=== PATIENT | female | born 1960 | race Caucasian/White ===

== ENCOUNTER 2017-12-12 13:54 | Inpatient (IN) ==
[2017-12-12] MEDS ORDERED: Ipratropium/Albuterol Neb 3 ML IH ONE ×2 (14:17→16:40)
--- NOTE | 2017-12-12 14:43 | Emergency Department Note ---
Disposition Clinical Impression: Acute exacerbation of chronic obstructive airways disease, Acute on chronic respiratory failure with hypoxia Disposition: Admitted As Inpatient Condition: Good Time of Disposition: 16:44 SOB HPI - General Chief Complaint: ED Shortness of Breath/Dyspnea Stated Complaint: MAYNOR-COPD Time Seen by Provider: 12/12/17 14:03 Source: patient Limitations: no limitations Nursing Notes Reviewed: Yes Vital Signs Reviewed: Yes - History of Present Illness Mrs. Cardona, 49-year-old female, presents from home with son bedside for evaluation of dyspnea. Onset progressive over the past 2 weeks. She was seen and evaluated at urgent care 2 weeks ago, diagnosed with bronchitis, given a prescription of an unknown antibiotic and steroids. She has completed both of these. Her symptoms initially improved for several days and then became steadily worse. She is a history of COPD and is on 2 L oxygen at night. Her dyspnea persists despite home metered dose and nebulizer inhalers as well as using her oxygen during the day. She has a productive cough and chest pain only when coughing. She has chills with subjective fever worsening fatigue, myalgia. ROS: Positive: As above Negative: Nausea, vomiting, diarrhea, constipation, hematemesis, hematochezia, melena, chest pains outside of cough diaphoresis, unusual back pains - Related Data Home Medications Medication Instructions Recorded Confirmed Advair 250-50 Diskus 06/18/15 06/18/15 Metoprolol 06/18/15 06/18/15 Singulair 06/18/15 06/18/15 Synthroid 06/18/15 06/18/15 Aspirin 11/25/17 11/25/17 Levothyroxine Sodium 11/25/17 Oxygen 11/25/17 Pravastatin Sodium 11/25/17 Spiriva 11/25/17 Xarelto 11/25/17 Previous Rx's Medication Instructions Recorded Albuterol Sulfate [Albuterol 2 puff IH QID 2 Days inhaler 11/03/15 Inhaler] Benzonatate [Tessalon] 200 mg PO TID PRN #30 capsule 06/11/16 GuaiFENesin/Codeine [Robitussin 5 ml PO Q6HR PRN #120 liquid 11/25/17 w/Codeine] cephALEXin [Keflex] 500 mg PO QID #40 capsule 11/25/17 methylPREDNISolone [Medrol] 4 mg PO TAPER #21 tablet 11/25/17 Allergies Allergy/AdvReac Type Severity Reaction Status Date / Time No Known Allergies Allergy Verified 11/25/17 17:11 All systems ED: reviewed and negative except as stated. Review of Systems: As Per HPI Past Medical History - Past Medical History Medical history: Reports: asthma, atrial fibrillation, COPD, hypertension, thyroid disease, other Psychiatric history: Reports: no psych history LEADER TIER history: Reports: no LEADER TIER history - Social History Smoking Status: Former smoker Smokeless Tobacco Status: No Alcohol use: Reports: none Drug use: Reports: none Physical Exam Vital Signs Reviewed General: Patient is alert, oriented, and in mild respiratory distress- preferring to lean forward while on room air. Head: atraumatic, normocephalic Eye: normal appearance, PERRL, EOMI, no scleral icterus, no conjunctival injection ENT: mucous membranes moist, normal external ear exam Neck: normal inspection, trachea midline, full ROM Chest: normal inspection, symmetric chest rise Respiratory: Poor respiratory effort. Long expiratory phase. Bilateral breath sounds globally diminished with poor air entry, bibasilar faint crackles. No wheeze or rhonchi. Cardiovastular: Regular rate and rhythm. No clicks, rubs, gallops, or murmors. Normal heart sounds. Abdomen: Bowel sounds present normoactive x-4 quadrants. Abdomen is soft, nondistended, and nontender. No guarding or rebound. No organomegaly noted. Musculoskeletal: Spontaneously moving all extremities. Skin: warm, dry, intact. Neuro: Alert and oriented x4. Sensation light touch intact. Psych: Patient's affect is appropriate for situation. - General Limitations: no limitations General appearance: alert Course Course Narrative: Clinically suspects acute exacerbation of COPD versus pneumonia. We will also look at potential cardiac etiology. Patient has no history of congestive heart failure does not clinically appear volume overloaded. She has no history of DVT or PE. Patient has poor air entry without wheeze. We will provide DuoNeb nebs and reassess hoping to open up airways and create a wheeze with improved air excursion. Serum hematology is unremarkable. Specifically, no leukocytosis. Serum chemistry is unremarkable. Chest x-ray not concerning for bronchitis or pneumonia. No pulmonary edema. After initial triple dose of DuoNeb's, patient now has slight global wheeze. She is now requiring 4 L of nasal cannula to maintain a saturation of 94% while sitting at bedside. She prefers sitting upright instead of laying supine. Given the above, will provide Solu-Medrol, additional DuoNeb times, and recommend admission. I discussed the above the patient, her , and her son. They are agreeable to admission for continued respiratory support. I discussed the above with the admitting hospitalist. He agrees to admission for continued evaluation and management. Chest X-Ray 12/12/17 14:17 IMPRESSION: No evidence for acute cardiopulmonary process. D/ / 12/12/2017 15:29:30 Montrell Barboza MD / tamara Interpreting Provider: Montrell Barboza MD Vital Signs Temperature 98.1 F 12/12/17 13:57 Pulse Rate 96 12/12/17 13:57 Respiratory Rate 18 12/12/17 13:57 Blood Pressure 141/89 12/12/17 13:57 O2 Sat by Pulse Oximetry 86 12/12/17 13:57 Temperature 98.1 F 12/12/17 13:57 Pulse Rate 99 12/12/17 16:51 Respiratory Rate 16 12/12/17 16:51 Blood Pressure 107/94 12/12/17 16:51 O2 Sat by Pulse Oximetry 94 12/12/17 16:51 Oxygen Delivery Oxygen Delivery Nasal Cannula Shortness of Breath/Dyspnea - Lab Data Result diagrams: 12/12/17 14:31 12/12/17 14:31 Lab Results 12/12/17 12/12/17 Range/Units 14:31 14:31 WBC 9.6 (4.3-11.1) K/mcL RBC 4.30 (3.82-4.97) M/mcL Hgb 13.7 (11.5-15.4) g/dL Hct 40.1 (35.3-44.9) % MCV 93.3 (83.0-100.0) fL MCH 31.9 (28.0-33.3) pg MCHC 34.2 (31.6-35.5) g/dL RDW 13.2 (11.5-14.5) % Plt Count 296 (140-400) K/mcL MPV 10.1 (9.4-12.4) fL Immature Gran % 0.2 (0-4) % Seg Neutrophils % 59.1 % Lymphocytes % 14.2 % Monocytes % 6.8 % Eosinophils % 19.1 % Basophils % 0.6 % Neutrophils # 5.7 (1.6-8.9) K/mcL Lymphocytes # 1.4 (0.6-4.6) K/mcL Monocytes # 0.7 (0.0-1.3) K/mcL Eosinophils # 1.8 H (0.0-0.6) K/mcL Basophils # 0.1 (0.0-0.2) K/mcL Sodium 141 (136-145) mEq/L Potassium 4.0 (3.5-5.1) mEq/L Chloride 107 (98-107) mEq/L Carbon Dioxide 27 (23-29) mEq/L BUN 7 (6-20) mg/dL Creatinine 0.82 (0.60-1.20) mg/dL Est GFR ( Amer) > 60 (> 60) Est GFR (Non-Af Amer) > 60 (> 60) BUN/Creatinine Ratio 9 (6-26) Glucose 103 (70-105) mg/dL Calculated Osmolality 290 (280-300) Calcium 10.3 (8.6-10.3) mg/dL - EKG Data EKG attestation: Yes I reviewed and interpreted this EKG. EKG shows normal: Reports: sinus rhythm Rate: Reports: normal Rhythm: Reports: NSR Interpretation: Reports: no acute changes, unchanged when compared to prior tracing (date) Attestation Statement - Attestation Attestation: Patient was seen with resident physician. I reviewed the history, physical, assessment and plan, and agree with the findings. I also personally evaluated this patient and had [id number] time with this patient. 57-year-old female presents emergency department with shortness of breath the last couple of days. Patient has a history of asthma and COPD. She was seen in urgent care 2 weeks ago diagnosed with bronchitis and placed on an antibiotic and steroid pack. She is not sure which antibiotic. She is last today she progressively gotten worse. Has required more oxygen and breathing treatments but it does not help. Denies fevers chills chest pain shortness of breath or swelling in the lower upper extremities. On exam vital signs are stable. ENT is unremarkable. Heart is normal. Lungs decreased movement of air. Patient position of comfort is sitting forward. There are some wheezing on end expiration. Abdomen is soft and nontender. Extremities unremarkable. Neurologically intact. Skin showed no rashes. And psychiatric exam is normal. ED course we will do a workup for COPD pneumonia or influenza. We will also treat with bronchodilators. Once treatments completely we will reevaluate patient for need for admission. Workup was largely unremarkable. However after 3 breathing treatments of patient was still having a difficult time I with her COPD exacerbation. As a result we will recommend admission. Case was discussed with the hospitalist service agreed to accept the patient for admission. I agree with resident physician assessment and plan.
[2017-12-12 14:47] LABS: Basophils # 0.1 K/mcL (0.0-0.2); Basophils % 0.6 %; Eosinophils # 1.8 K/mcL (0.0-0.6); Eosinophils % 19.1 %; Hematocrit 40.1 % (35.3-44.9); Hemoglobin 13.7 g/dL (11.5-15.4); Immature Granulocytes % 0.2 % (0-4); Lymphocytes # 1.4 K/mcL (0.6-4.6); Lymphocytes % 14.2 %; Mean Corpuscular HGB Conc 34.2 g/dL (31.6-35.5); Mean Corpuscular Hemoglobin 31.9 pg (28.0-33.3); Mean Corpuscular Volume 93.3 fL (83.0-100.0); Mean Platelet Volume 10.1 fL (9.4-12.4); Monocytes # 0.7 K/mcL (0.0-1.3); Monocytes % 6.8 %; Neutrophils # 5.7 K/mcL (1.6-8.9); Platelet Count 296 K/mcL (140-400); Red Cell Distribution Width 13.2 % (11.5-14.5); Segmented Neutrophils % 59.1 %
[2017-12-12 15:20] LABS: Blood Urea Nitrogen 7 mg/dL (6-20); Calcium 10.3 mg/dL (8.6-10.3); Carbon Dioxide 27 mEq/L (23-29); Chloride 107 mEq/L (98-107); Glucose 103 mg/dL (70-105); Osmolality,Calculated 290 (280-300); Sodium 141 mEq/L (136-145)
[2017-12-12 16:22] LABS: BUN/Creatinine Ratio 9 (6-26); eGFR For African Americans > 60 (> 60); eGFR For Non-African Americans > 60 (> 60)
[2017-12-12] MEDS ORDERED: methylPREDNISolone 125 MG/2 ML VIAL IVP ONE (16:41)
--- NOTE | 2017-12-12 17:32 | Internal Med History&Physical ---
Date of Encounter: 12/13/17 Time of Encounter: 17:24 Assessment and Plan (1) Acute exacerbation of chronic obstructive airways disease Current visit: Yes Status: Acute 57/female EX smoker. Diagnosed COPD more than 5 years back. He is to follow-up at pulmonology group here in this hospital. 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 2-3 exacerbations every year in the past 4-5 years. She claims that she is up-to-date with her vaccination. Ongoing shortness of breath/cough/difficulty in breathing for more than a month. Failed outpatient trial of antibiotics/steroids. Presently using accessory muscles of respiration and she has a polyphonic bilateral wheezes. Assessment: Acute exacerbation of COPD. Failed outpatient antibiotic treatment. Plan: Admit as inpatient. Intravenous ceftriaxone 1 g every 24 hours/intravenous azithromycin 500 mg every 24 hours. Intravenous methylprednisolone 40 mg every 8 hours Interval bronchodilators every 4 hours. Close monitoring of the respiratory status. Of note: I examined this patient in the emergency room #15. Plan of care discussed with the patient at length. All questions answered. Patient verbalizes understanding. (2) Atrial fibrillation Current visit: Yes Status: Acute Patient is known to have a chronic atrial fibrillation. EKG: Today: Rate is very well controlled with atrial fibrillation. Echocardiogram: 01/21/2017: EF 60%, mild diastolic dysfunction, pulmonary hypertension. Rate control: Metoprolol 200 mg by mouth daily. Anticoagulation:Xarelto plan We will continue home medication. We will get 3 troponins. Qualifiers: Atrial fibrillation type: chronic Qualified Code(s): I48.2 - Chronic atrial fibrillation (3) Hypothyroidism Current visit: Yes Status: Acute We will get TSH. Continue home medication. Qualifiers: Hypothyroidism type: unspecified Qualified Code(s): E03.9 - Hypothyroidism , unspecified (4) Hyperlipidemia Current visit: Yes Status: Acute We will continue pravastatin Qualifiers: Hyperlipidemia type: unspecified Qualified Code(s): E78.5 - Hyperlipidemia , unspecified (5) Hypertension Current visit: Yes Status: Acute We will continue present medication. Qualifiers: Hypertension type: essential hypertension Qualified Code(s): I10 - Essential (primary) hypertension (6) DVT prophylaxis Current visit: Yes Status: Acute Xarelto Medical decision making: This patient has a moderate to severe risk of worsening in spite of being on appropriate medication due to the underlying multiple comorbid conditions. Internal Medicine - H&P: HPI Chief complaint: Difficulty in breathing Admitted From: Emergency Dept Plans for Post Hospital Care: Home History of present illness: 57/F PCP: Aniyah Ang Dental Technician Apprentice : Dr Wise in past and presently no product owner follow up. Brief PMH: COPD on 2 L of oxygen at home, hypothyroidism, atrial fibrillation, hyperlipidemia, History of present medical illness: Patient has ongoing worsening shortness of breath off and on for more than one month. In last 2 weeks it was noted that patient's shortness of breath got worsened. Patient claims that she has productive cough with the mucopurulent expectoration. The color of her sputum is yellowish green and sometimes brown. Patient was evaluated by urgent care and she was given the tapering steroid dose pack along with a course of oral antibiotics. According to the patient this medications from urgent care did not help her at all and her shortness of breath is progressively getting worse. Patient was really concerned about this worsening shortness of breath along with a productive cough and that was the reason she decided to come to the emergency room for further evaluation. Patient denies nausea or vomiting diarrhea constipation hematemesis hematochezia melena chest pain or any other back pain. Patient is ex-smoker Workup in the emergency room: Patient was evaluated in the emergency room. Basic labs were drawn. Intravenous steroids were given along with inhaled bronchodilators. Patient still has active bilateral wheezing along with that patient is using accessory muscles of respiration. Reason for admission: COPD exacerbation with failed outpatient treatment which needs intravenous antibiotics/steroids along with inhaled bronchodilators. Family history: Noncontributory Past Med Surg Social Fam HX - Past Medical History Medical history: asthma, atrial fibrillation, COPD, hypertension, thyroid disease, other Psychiatric history: no psych history - Social History Smoking Status: Former smoker Smokeless Tobacco Status: No Alcohol use: none Drug use: none Internal Medicine - H&P: Meds Aspirin Enteric Coated [Aspirin EC] 81 mg PO DAILY 12/12/17 [History] Fluticasone/Salmeterol [Advair 250-50 Diskus] 2 puff IH BID 12/12/17 [History] Ipratropium/Albuterol Neb [Duoneb] 3 ml IH QID PRN 12/12/17 [History] Levothyroxine Sodium 50 mcg PO DAILY 12/12/17 [History] Metoprolol Succinate 200 mg PO DAILY 12/12/17 [History] Oxygen 2 l .ROUTE AD 12/12/17 [History] Pravastatin Sodium [Pravachol] 80 mg PO DAILY 12/12/17 [History] Rivaroxaban [Xarelto] 20 mg PO DAILY 12/12/17 [History] 3 Allergy/AdvReac Type Severity Reaction Status Date / Time No Known Allergies Allergy Verified 11/25/17 17:11 All Systems PM: A 10-system review of systems was performed and is negative for pertinent findings except as documented above in the HPI. - Constitutional Constitutional: no chills, no fever(s), no night sweats - EENT Eyes: no change in vision, no discharge, no pain, no photophobia Ears: no ear discharge, no ear pain, no tinnitus Nose, mouth and throat: no dysphagia, no nasal discharge, no neck pain, no sore throat - Cardiovascular Cardiovascular ROS IM: diaphoresis, dyspnea, no chest pain, no lightheadedness, no palpitations, no syncope - Respiratory Respiratory: cough, dyspnea, wheezing, excessive phlegm production, change in phlegm color - Gastrointestinal Gastrointestinal: no abdominal pain, no diarrhea, no hematemesis, no hematochezia, no melena, no nausea, no vomiting - Genitourinary Genitourinary: no change in urinary stream, no dysuria, no flank pain, no hematuria - Musculoskeletal Musculoskeletal ROS IM: no numbness, no tingling - Integumentary Integumentary IM: no rash, no unusual bruising - Neurological Neurological ROS: no confusion, no convulsions, no focal weakness, no numbness, no tingling, no tremor(s) - Hematologic/Lymphatic Hematologic/Lymphatic: no easy bruising - Constitutional Vitals: Temp Pulse Resp BP Pulse Ox 98.1 F 99 16 107/94 92 12/12/17 13:57 12/12/17 16:51 12/12/17 17:02 12/12/17 17:02 12/12/17 17:02 General appearance: Present: A&O X 3, pleasant, no acute distress, answers questions appropriately - Head Head exam: Present: atraumatic, normocephalic - Eye Eye exam: Present: PERRL, conjuntiva pink, sclera anicteric Pupils: Present: PERRL - Neck Neck exam general surgery: Present: supple, trachea midline. Absent: lymphadenopathy - Respiratory Respiratory exam: Present: CTAB. Absent: accessory muscle use, rales, rhonchi, wheezes - Cardiovascular Cardiovascular exam: Present: RRR, +S1, +S2. Absent: diastolic murmur, gallop, rubs, systolic murmur - GI/Abdominal GI/Abdominal exam: Present: normal bowel sounds, soft, no peritoneal signs. Absent: distended, tenderness - Extremities Exam Extremities exam: Present: warm, radial pulses palpable and symmetrical. Absent : calf tenderness, cyanotic, pedal edema - Neurological Exam Neurological exam: Present: CN II-XII intact, oriented X3, no focal deficits. Absent: pronater drift, facial droop, speech deficit - Skin Skin exam: Present: dry, intact Internal Med - H&P Results - Labs CBC & Chem 7: 12/13/17 03:43 12/13/17 03:43 Labs: Results discussed with the emergency room physician.
[2017-12-12] MEDS ORDERED: Naloxone 0.4 MG/ML INJ IVP PRN (17:42)
[2017-12-12] MEDS: Azithromycin 500 MG in D5% in Water 250 ML IVPB SCH (19:26)
[2017-12-12] MEDS: Ipratropium/Albuterol Neb 3 ML IH SCH ×2 (19:50→23:16)
[2017-12-13] MEDS: MethylPREDNISolone 40 MG/ML VIAL IVP SCH ×4 (00:07→23:34)
[2017-12-13] MEDS: Melatonin 3 MG TABLET PO SCH ×2 (01:03→21:34)
[2017-12-13 03:53] LABS: Eosinophils % 0.1 %; Hematocrit 40.9 % (35.3-44.9); Hemoglobin 13.8 g/dL (11.5-15.4); Immature Granulocytes % 0.3 % (0-4); Lymphocytes # 0.6 K/mcL (0.6-4.6); Lymphocytes % 7.6 %; Mean Corpuscular HGB Conc 33.7 g/dL (31.6-35.5); Mean Corpuscular Hemoglobin 31.4 pg (28.0-33.3); Monocytes % 0.5 %; Neutrophils # 6.8 K/mcL (1.6-8.9); Platelet Count 292 K/mcL (140-400); Red Cell Distribution Width 13.2 % (11.5-14.5); Segmented Neutrophils % 91.5 %
[2017-12-13] MEDS: Ipratropium/Albuterol Neb 3 ML IH SCH ×6 (03:59→23:43)
[2017-12-13 04:10] LABS: BUN/Creatinine Ratio 13 (6-26); Blood Urea Nitrogen 10 mg/dL (6-20); Calcium 9.7 mg/dL (8.6-10.3); Carbon Dioxide 25 mEq/L (23-29); Chloride 104 mEq/L (98-107); Chol/HDL Ratio 3.2 (0-4.9); Cholesterol 212 mg/dL (< 200); Glucose 139 mg/dL (70-105); HDL Cholesterol 67 mg/dL (40-59); LDL Cholesterol,Calculated 130 mg/dL (0-99); Magnesium 1.9 mg/dL (1.6-2.6); Osmolality,Calculated 289 (280-300); Phosphorous 3.4 mg/dL (2.7-4.5); Sodium 139 mEq/L (136-145); Triglycerides 76 mg/dL (< 150); eGFR For African Americans > 60 (> 60); eGFR For Non-African Americans > 60 (> 60)
[2017-12-13] MEDS: cefTRIAXone 1,000 MG in Water for inj. (sterile) 20 ML 10 ML IVP SCH (09:23)
[2017-12-13] MEDS: Aspirin Enteric Coated 81 MG Tablet PO SCH (09:24)
[2017-12-13] MEDS: Metoprolol XL (24 HR) Succ 50 MG TAB.ER.24H PO SCH (09:24)
[2017-12-13] MEDS: *HR* Rivaroxaban 10 MG TABLET PO SCH (09:24)
--- NOTE | 2017-12-13 16:17 | Internal Med Progress Note ---
Date of Encounter: 12/13/17 Time of Encounter: 16:15 - Assessment and plan (1) Acute exacerbation of chronic obstructive airways disease Current Visit: Yes Status: Acute Assessment and plan: 57/female Known to have a COPD. Admitted with COPD exacerbation. Presently on antibiotics (ceftriaxone/azithromycin: Intravenously) Intravenous Solu-Medrol 40 mg every 8 hours. Inhaled bronchodilators Plan: Will continue present treatment for now. (2) Atrial fibrillation Current Visit: Yes Status: Acute Assessment and plan: She is stable atrial fibrillation. We will continue home medication. Qualifiers: Atrial fibrillation type: chronic Qualified Code(s): I48.2 - Chronic atrial fibrillation (3) Hypothyroidism Current Visit: Yes Status: Acute Assessment and plan: Stable Qualifiers: Hypothyroidism type: unspecified Qualified Code(s): E03.9 - Hypothyroidism , unspecified (4) Hyperlipidemia Current Visit: Yes Status: Acute Assessment and plan: Stable Qualifiers: Hyperlipidemia type: unspecified Qualified Code(s): E78.5 - Hyperlipidemia , unspecified (5) Hypertension Current Visit: Yes Status: Acute Assessment and plan: Continue home meds Qualifiers: Hypertension type: essential hypertension Qualified Code(s): I10 - Essential (primary) hypertension (6) DVT prophylaxis Current Visit: Yes Status: Acute Assessment and plan: Xarelto - Subjective Interval history: Patient seen and examined. Chart reviewed. Patient is comfortably sitting in the bed. Patient still has occasional shortness of breath and she is still coughing. Patient denies any chest pain - Constitutional Vitals: Temp Pulse Resp BP Pulse Ox 98.0 F 103 18 116/82 97 12/13/17 11:50 12/13/17 11:50 12/13/17 11:50 12/13/17 11:50 12/13/17 11:50 General appearance: Present: A&O X 3, pleasant, no acute distress, answers questions appropriately - Head Head exam: Present: atraumatic, normocephalic - Eye Eye exam: Present: PERRL, conjuntiva pink, sclera anicteric Pupils: Present: PERRL - Neck Neck exam general surgery: Present: supple, trachea midline. Absent: lymphadenopathy - Respiratory Respiratory exam: Present: CTAB. Absent: accessory muscle use, rales, rhonchi, wheezes - Cardiovascular Cardiovascular exam: Present: RRR, +S1, +S2. Absent: diastolic murmur, gallop, rubs, systolic murmur - GI/Abdominal GI/Abdominal exam: Present: normal bowel sounds, soft, no peritoneal signs. Absent: distended, tenderness - Extremities Exam Extremities exam: Present: warm, radial pulses palpable and symmetrical. Absent : calf tenderness, cyanotic, pedal edema - Neurological Exam Neurological exam: Present: CN II-XII intact, oriented X3, no focal deficits. Absent: pronater drift, facial droop, speech deficit - Skin Skin exam: Present: dry, intact Internal Medicine: Result - Labs CBC & Chem 7: 12/13/17 03:43 12/13/17 03:43 Labs: Short CBC 12/13/17 Range/Units 03:43 WBC 7.4 (4.3-11.1) K/mcL Hgb 13.8 (11.5-15.4) g/dL Hct 40.9 (35.3-44.9) % Plt Count 292 (140-400) K/mcL Neutrophils # 6.8 (1.6-8.9) K/mcL BMP 12/13/17 03:43 Sodium 139 Potassium 4.0 Chloride 104 Carbon Dioxide 25 BUN 10 Creatinine 0.80 Glucose 139 H Calcium 9.7 Cardiac Enzymes 12/12/17 12/13/17 12/13/17 Range/Units 20:57 03:43 10:18 Troponin I < 0.03 < 0.03 < 0.03 (< 0.04) ng/mL Consult Discharge Plan - Plan Referrals: Aniyah Ang [Primary Care Provider] -
[2017-12-13] MEDS: Azithromycin 500 MG in D5% in Water 250 ML IVPB SCH (16:59)
[2017-12-13] MEDS ORDERED: Albuterol 2.5 MG/3 ML NEBULIZER IH PRN (21:45)
[2017-12-14] MEDS: Ipratropium/Albuterol Neb 3 ML IH SCH ×6 (04:23→23:31)
[2017-12-14 06:05] LABS: Basophils % 0.1 %; Hematocrit 38.7 % (35.3-44.9); Hemoglobin 13.2 g/dL (11.5-15.4); Immature Granulocytes % 0.6 % (0-4); Lymphocytes # 0.5 K/mcL (0.6-4.6); Lymphocytes % 3.6 %; Mean Corpuscular HGB Conc 34.1 g/dL (31.6-35.5); Mean Corpuscular Hemoglobin 31.6 pg (28.0-33.3); Mean Corpuscular Volume 92.6 fL (83.0-100.0); Mean Platelet Volume 10.1 fL (9.4-12.4); Monocytes # 0.3 K/mcL (0.0-1.3); Monocytes % 2.3 %; Neutrophils # 13.3 K/mcL (1.6-8.9); Platelet Count 239 K/mcL (140-400); Red Blood Count 4.18 M/mcL (3.82-4.97); Red Cell Distribution Width 13.3 % (11.5-14.5); Segmented Neutrophils % 93.4 %
[2017-12-14 06:46] LABS: BUN/Creatinine Ratio 23 (6-26); Blood Urea Nitrogen 19 mg/dL (6-20); Calcium 9.2 mg/dL (8.6-10.3); Carbon Dioxide 28 mEq/L (23-29); Chloride 106 mEq/L (98-107); Glucose 140 mg/dL (70-105); Osmolality,Calculated 295 (280-300); Potassium 4.4 mEq/L (3.5-5.1); Sodium 140 mEq/L (136-145); eGFR For African Americans > 60 (> 60); eGFR For Non-African Americans > 60 (> 60)
[2017-12-14] MEDS: Aspirin Enteric Coated 81 MG Tablet PO SCH (08:42)
[2017-12-14] MEDS: MethylPREDNISolone 40 MG/ML VIAL IVP SCH ×3 (08:43→23:05)
[2017-12-14] MEDS: cefTRIAXone 1,000 MG in Water for inj. (sterile) 20 ML 10 ML IVP SCH (08:43)
[2017-12-14] MEDS: Metoprolol XL (24 HR) Succ 50 MG TAB.ER.24H PO SCH (08:43)
[2017-12-14] MEDS: *HR* Rivaroxaban 10 MG TABLET PO SCH (08:43)
--- NOTE | 2017-12-14 09:32 | Discharge Summary ---
Date of Encounter: 12/14/17 Time of Encounter: 09:29 - Discharge Diagnosis (1) Acute exacerbation of chronic obstructive airways disease Priority: Primary Status: Acute (2) Atrial fibrillation Priority: Secondary Status: Acute Qualifiers: Atrial fibrillation type: chronic Qualified Code(s): I48.2 - Chronic atrial fibrillation (3) Hypothyroidism Priority: Secondary Status: Acute Qualifiers: Hypothyroidism type: unspecified Qualified Code(s): E03.9 - Hypothyroidism , unspecified (4) Hyperlipidemia Priority: Secondary Status: Acute Qualifiers: Hyperlipidemia type: unspecified Qualified Code(s): E78.5 - Hyperlipidemia , unspecified (5) Hypertension Priority: Secondary Status: Acute Qualifiers: Hypertension type: essential hypertension Qualified Code(s): I10 - Essential (primary) hypertension (6) DVT prophylaxis Priority: Secondary Status: Acute - Discharge Medications Prescriptions: Amoxicillin/Clavulanate [Augmentin] 875 mg PO BIDWM #10 tablet predniSONE [Prednisone] 50 mg PO DAILY #5 tablet Home Medications: Aspirin Enteric Coated [Aspirin EC] 81 mg PO DAILY 12/12/17 [History] Fluticasone/Salmeterol [Advair 250-50 Diskus] 2 puff IH BID 12/12/17 [History] Ipratropium/Albuterol Neb [Duoneb] 3 ml IH QID PRN 12/12/17 [History] Levothyroxine Sodium 50 mcg PO DAILY 12/12/17 [History] Metoprolol Succinate 200 mg PO DAILY 12/12/17 [History] Oxygen 2 l .ROUTE AD 12/12/17 [History] Pravastatin Sodium [Pravachol] 80 mg PO DAILY 12/12/17 [History] Rivaroxaban [Xarelto] 20 mg PO DAILY 12/12/17 [History] Amoxicillin/Clavulanate [Augmentin] 875 mg PO BIDWM #10 tablet 12/14/17 [Rx] predniSONE [Prednisone] 50 mg PO DAILY #5 tablet 12/14/17 [Rx] Allergies/Adverse Reactions: 3 Allergy/AdvReac Type Severity Reaction Status Date / Time No Known Allergies Allergy Verified 11/25/17 17:11 Date of admission: 12/12/17 18:03 Primary care physician: Aniyah Ang Discharging clinician: Quirino Lei - Patient Status Disposition: Home, Self-Care Condition: Good Functional capacity at discharge: independent ambulation Overall status at discharge: patient is progressing back to baseline - Discharge Instructions Follow Up With: Aniyah Ang [Primary Care Provider] - Leyda Owens MD [Partnered Physician] - - Diet and Activity Activity: increase activity as tolerated Diet: low fat, low cholesterol, low salt diet Interval History: 57/F PCP: Aniyha Ang Field Support Rep : Dr Wise in past and presently no 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 Brief PMH: COPD on 2 L of oxygen at home, hypothyroidism, atrial fibrillation, hyperlipidemia, History of present medical illness: Patient has ongoing worsening shortness of breath off and on for more than one month. In last 2 weeks it was noted that patient's shortness of breath got worsened. Patient claims that she has productive cough with the mucopurulent expectoration. The color of her sputum is yellowish green and sometimes brown. Patient was evaluated by urgent care and she was given the tapering steroid dose pack along with a course of oral antibiotics. According to the patient this medications from urgent care did not help her at all and her shortness of breath is progressively getting worse. Patient was really concerned about this worsening shortness of breath along with a productive cough and that was the reason she decided to come to the emergency room for further evaluation. Patient denies nausea or vomiting diarrhea constipation hematemesis hematochezia melena chest pain or any other back pain. Patient is ex-smoker Workup in the emergency room: Patient was evaluated in the emergency room. Basic labs were drawn. Intravenous steroids were given along with inhaled bronchodilators. Patient still has active bilateral wheezing along with that patient is using accessory muscles of respiration. Reason for admission: COPD exacerbation with failed outpatient treatment which needs intravenous antibiotics/steroids along with inhaled bronchodilators. Hospital course: COPD Exacerbation: Admit as inpatient. Intravenous ceftriaxone 1 g every 24 hours/intravenous azithromycin 500 mg every 24 hours. Intravenous methylprednisolone 40 mg every 8 hours Interval bronchodilators every 4 hours. AFib EKG: Today: Rate is very well controlled with atrial fibrillation. Echocardiogram: 01/21/2017: EF 60%, mild diastolic dysfunction, pulmonary hypertension. Rate control: Metoprolol 200 mg by mouth daily. Anticoagulation:Xarelto Patient improved clinically. Today patient told me that she feels 70-75% better as compared to the day of admission. Patient denies any shortness of breath and able to lay down flat. Patient is not using any accessory muscles of respiration. Patient's wheezing is very very occasional. Plan: Patient can go home today. If she does not feel comfortable today she can go home tomorrow. Upon discharge she will get Augmentin/prednisone for 5 days/inhaled bronchodilators. Patient will follow up with her primary care doctor in 1-2 weeks. Patient will follow-up with pulmonology in next 1-2 weeks. - Time Spent with Patient Total time spent providing and/or coordinating discharge services: - Constitutional Vitals: Temp Pulse Resp BP Pulse Ox 97.6 F 90 18 112/72 90 12/14/17 07:35 12/14/17 07:35 12/14/17 07:35 12/14/17 07:35 12/14/17 07:35 General appearance: Present: A&O X 3, pleasant, no acute distress, answers questions appropriately - Head Head exam: Present: atraumatic, normocephalic - Eye Eye exam: Present: PERRL, conjuntiva pink, sclera anicteric Pupils: Present: PERRL - Neck Neck exam general surgery: Present: supple, trachea midline. Absent: lymphadenopathy - Respiratory Respiratory exam: Present: CTAB. Absent: accessory muscle use, rales, rhonchi, wheezes - Cardiovascular Cardiovascular exam: Present: RRR, +S1, +S2. Absent: diastolic murmur, gallop, rubs, systolic murmur - GI/Abdominal GI/Abdominal exam: Present: normal bowel sounds, soft, no peritoneal signs. Absent: distended, tenderness - Extremities Exam Extremities exam: Present: warm, radial pulses palpable and symmetrical. Absent : calf tenderness, cyanotic, pedal edema - Neurological Exam Neurological exam: Present: CN II-XII intact, oriented X3, no focal deficits. Absent: pronater drift, facial droop, speech deficit - Skin Skin exam: Present: dry, intact
[2017-12-14] MEDS: Azithromycin 500 MG in D5% in Water 250 ML IVPB SCH (17:46)
[2017-12-14] MEDS: Melatonin 3 MG TABLET PO SCH (21:03)
[2017-12-15] MEDS: Ipratropium/Albuterol Neb 3 ML IH SCH ×2 (03:57→07:54)
[2017-12-15 06:46] VITALS: BP 103/68
[2017-12-15 07:13] LABS: Basophils % 0.1 %; Hematocrit 36.3 % (35.3-44.9); Hemoglobin 12.3 g/dL (11.5-15.4); Immature Granulocytes % 0.7 % (0-4); Lymphocytes # 0.7 K/mcL (0.6-4.6); Lymphocytes % 4.5 %; Mean Corpuscular HGB Conc 33.9 g/dL (31.6-35.5); Mean Corpuscular Hemoglobin 31.3 pg (28.0-33.3); Mean Corpuscular Volume 92.4 fL (83.0-100.0); Mean Platelet Volume 10.1 fL (9.4-12.4); Monocytes # 0.3 K/mcL (0.0-1.3); Monocytes % 2.3 %; Neutrophils # 13.4 K/mcL (1.6-8.9); Platelet Count 224 K/mcL (140-400); Red Blood Count 3.93 M/mcL (3.82-4.97); Red Cell Distribution Width 13.2 % (11.5-14.5); Segmented Neutrophils % 92.4 %
[2017-12-15 08:13] LABS: BUN/Creatinine Ratio 31 (6-26); Blood Urea Nitrogen 21 mg/dL (6-20); Calcium 8.9 mg/dL (8.6-10.3); Carbon Dioxide 27 mEq/L (23-29); Chloride 107 mEq/L (98-107); Glucose 139 mg/dL (70-105); Osmolality,Calculated 295 (280-300); Potassium 4.2 mEq/L (3.5-5.1); Sodium 140 mEq/L (136-145); eGFR For African Americans > 60 (> 60); eGFR For Non-African Americans > 60 (> 60)
[2017-12-15] MEDS: *HR* Rivaroxaban 10 MG TABLET PO SCH (10:34)
[2017-12-15] MEDS: cefTRIAXone 1,000 MG in Water for inj. (sterile) 20 ML 10 ML IVP SCH (10:34)
[2017-12-15] MEDS: MethylPREDNISolone 40 MG/ML VIAL IVP SCH (10:34)
[2017-12-15] MEDS: Aspirin Enteric Coated 81 MG Tablet PO SCH (10:34)
[2017-12-15] MEDS: Metoprolol XL (24 HR) Succ 50 MG TAB.ER.24H PO SCH (10:34)
--- NOTE | 2017-12-15 10:57 | Event Note ---
Date of Encounter: 12/15/17 Time of Encounter: 10:57 57-year-old female with many scattered history of chronic respiratory failure and COPD who was admitted for COPD exacerbation. Patient was discharged yesterday, for some reason she could not yesterday. She was seen and evaluated at the bedside. She is ambulatory, she denies shortness of breath. She has no new complaints. Physical examination is unremarkable. Labs and imaging reviewed: Persistent leukocytosis, afebrile. Possibly secondary to steroids. She also has atrial fibrillation with heart rate controlled, and on xarelto for anticoagulation. Echocardiogram is unremarkable. Stable to be discharged home with current plan. Follow-up with primary care physician and advance agent.
--- NOTE | 2017-12-15 19:49 | Electrocardiograph Report ---
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
== END 2017-12-15 11:05 | disposition home or self-care (01) | DRG 191 ==
LOC: 3ANU 13:54 → EMEROO 13:54 → 3ANU 17:24 → SUATTDRO 18:03
PROVIDERS: ADMIT Internal Medicine; ATTEND Internal Medicine